=== PATIENT | male | born 1980 | race Two or more races ===

== ENCOUNTER → 2019-12-03 | Outpatient (CLI) | payer OTHER | END | disposition home or self-care (01) | LOC: EDSTATUS 16:45 → RAD 17:27 | DX: N50.89 Other specified disorders of the male genital organs (principal) | CPT/HCPCS: 76870 ==

== ENCOUNTER 2021-01-10 18:28 | Emergency (ER) | payer OTHER ==
[~2021-01-10] VITALS: Ht 170.2 cm; Wt 92.6 kg
[2021-01-10 18:36] VITALS: BP 116/78
--- NOTE | 2021-01-10 19:21 | NUR ---
First contact with patient: patient ambulatory with mild difficulty to room from lobby.
--- NOTE | 2021-01-10 20:44 | NUR ---
Patient refused crutches, stating he has them at home. Provided education on them and anna bandaged ankle. Discharge instructions givnen. All questions and concerns addressed. Patient ambulatory.
== END 2021-01-10 20:45 | disposition home or self-care (01) ==
LOC: ED 18:58
DX: S93.491A Sprain of other ligament of right ankle, initial encounter (principal); W01.0XXA Fall on same level from slipping, tripping and stumbling without subsequent striking against object, initial encounter; Y93.89 Activity, other specified; Y92.89 Other specified places as the place of occurrence of the external cause; Y99.8 Other external cause status
CPT/HCPCS: 99283